=== PATIENT | female | born 1990 | race American Indian/Alaskan Native ===

== ENCOUNTER 2017-01-01 10:27 | Emergency (ER) | payer SELFPAY ==
--- NOTE | 2017-01-01 10:33 | Emergency Department Report ---
Chief Complaint: Fever Stated Complaint: FEVER Time Seen by Provider: 01/01/17 10:30 - HPI History of Present Illness: PT c/o fever since yesterday at 1800. PT also c/o kidney pain - ROS Review of Systems: + fever/ chills +nausea/+ vomiting - Exam Physical Exam: pt tearful in triage non toxic + back tenderness MSE screening note: Focused history and physical exam performed. Due to findings the following was ordered: labs ED Disposition for MSE Condition: Stable
[2017-01-01 10:35] VITALS: BP 122/87
[2017-01-01 10:59] LABS: Basophils % (Auto) 0.3 % (0.0-1.8); Eosinophils % (Auto) 0.8 % (0.0-4.3); Hematocrit 39.1 % (30.3-42.9); Hemoglobin 13.2 gm/dl (10.1-14.3); Mean Corpuscular HGB Conc 34 % (30-34); Mean Corpuscular Hemoglobin 33 pg (28-32); Mean Corpuscular Volume 99 fl (79-97); Platelet Count 191 K/mm3 (140-440); Red Blood Count 3.97 M/mm3 (3.65-5.03); Red Cell Distribution Width 13.7 % (13.2-15.2); White Blood Count 8.4 K/mm3 (4.5-11.0)
[2017-01-01 11:02] LABS: Bilirubin,Urine NEG (Negative); Blood,Urine SM (Negative); Ketones,Urine 80 mg/dL (Negative); Leukocyte Esterase,Urine MOD (Negative); Mucus,Urine 3+ /HPF; Nitrite,Urine NEG (Negative)
[2017-01-01 11:11] LABS: Anion Gap 22 mmol/L; BUN/Creatinine Ratio 11.66; Blood Urea Nitrogen 7 mg/dL (7-17); Calcium 9.1 mg/dL (8.4-10.2); Carbon Dioxide 19 mmol/L (22-30); Glucose 92 mg/dL (65-100); Potassium 3.5 mmol/L (3.6-5.0); Sodium 139 mmol/L (137-145)
[2017-01-01] MEDS ORDERED: NACL 0.9% 1000 ML 1,000 ML IV ONE ×2 (11:30→15:28)
[2017-01-01] MEDS ORDERED: TORADOL IV ONE (11:30)
[2017-01-01] MEDS ORDERED: ZOFRAN IV ONE ×2 (11:31→15:28)
--- NOTE | 2017-01-01 11:33 | Emergency Department Report ---
ED Back Pain/Injury HPI - General Chief Complaint: Fever Stated Complaint: FEVER Time Seen by Provider: 01/01/17 10:30 Source: patient Limitations: No Limitations - History of Present Illness Initial Comments: 26-year-old female no past medical history presents with complaint of one day of worsening lower back pain and right-sided flank pain with associated nausea and vomiting. Patient is awake alert and oriented 3 appears uncomfortable and states that the pain is 10 out of 10 in her lower back. States she has been vomiting persistently since this morning. MD Complaint: back pain - Related Data Allergies Allergy/AdvReac Type Severity Reaction Status Date / Time latex Allergy Rash Verified 01/01/17 12:16 ED Review of Systems ROS: Stated complaint: FEVER Other details as noted in HPI Constitutional: denies: chills, fever Eyes: denies: eye pain, eye discharge, vision change ENT: denies: ear pain, throat pain Respiratory: denies: cough, shortness of breath, wheezing Cardiovascular: denies: chest pain, palpitations Endocrine: no symptoms reported Gastrointestinal: abdominal pain, nausea. denies: diarrhea Genitourinary: denies: urgency, dysuria, discharge Musculoskeletal: denies: back pain, joint swelling, arthralgia Skin: denies: rash, lesions Neurological: denies: headache, weakness, paresthesias Psychiatric: denies: anxiety, depression Hematological/Lymphatic: denies: easy bleeding, easy bruising ED Past Medical Hx - Past Medical History Previous Medical History?: Yes Additional medical history: Vaginal dleivery x 1 - Surgical History Past Surgical History?: No - Social History Smoking Status: Never Smoker Substance Use Type: Non Opiate Pain ED Physical Exam - General Limitations: No Limitations General appearance: alert, in no apparent distress - Head Head exam: Present: atraumatic, normocephalic - Eye Eye exam: Present: normal appearance, PERRL, EOMI - ENT ENT exam: Present: mucous membranes moist - Neck Neck exam: Present: normal inspection - Respiratory Respiratory exam: Present: normal lung sounds bilaterally. Absent: respiratory distress - Cardiovascular Cardiovascular Exam: Present: regular rate, normal rhythm. Absent: systolic murmur, diastolic murmur, rubs, gallop - GI/Abdominal GI/Abdominal exam: Present: soft, normal bowel sounds - Extremities Exam Extremities exam: Present: normal inspection - Back Exam Back exam: Present: normal inspection, CVA tenderness (R), paraspinal tenderness (right sided flank pain) - Neurological Exam Neurological exam: Present: alert, oriented X3, CN II-XII intact, normal gait - Psychiatric Psychiatric exam: Present: normal affect, normal mood - Skin Skin exam: Present: warm, dry, intact, normal color. Absent: rash ED Course Vital Signs 01/01/17 10:31 Temperature 99.4 F Pulse Rate 95 H Respiratory 18 Rate Blood Pressure 122/87 O2 Sat by Pulse 100 Oximetry ED Medical Decision Making - Lab Data Result diagrams: 01/01/17 10:38 01/01/17 10:38 - Medical Decision Making A/P: Right flank pain, nausea and vomiting 1- 2- 3- 4- Critical care attestation.: If time is entered above; I have spent that time in minutes in the direct care of this critically ill patient, excluding procedure time. ED Disposition Condition: Stable Referrals: PRIMARY CARE, [Primary Care Provider] - 3-5 Days
[2017-01-01] MEDS ORDERED: MORPHINE ONE (12:19)
[2017-01-01] MEDS ORDERED: MORPHINE IV ONE ×2 (12:30→15:27)
[2017-01-01] MEDS ORDERED: ROCEPHIN/NS 1 GM/50 ML 1 GM/50 ML BAG IV ONE (17:59)
--- NOTE | 2017-01-02 07:52 | Cat Scan Report ---
CT OF THE ABDOMEN AND PELVIS WITHOUT CONTRAST HISTORY: Right flank pain. TECHNIQUE: Helical CT without contrast. Sagittal and coronal reformatted images. FINDINGS: No comparison. A horseshoe kidney is suspected. The renal pyramids are slightly hyperdense consistent with nephrocalcinosis. No focal renal or ureteral stone. No hydronephrosis. The course of the ureters is difficult to follow secondary to lack of intra-abdominal fat. No ureteral stones are suspected. The bladder is unremarkable. A 1.7 cm right ovarian cyst is suspected. The left ovary and uterus are unremarkable. Within the limits of a noncontrast exam, the remaining abdominal and pelvic viscera are within normal limits. The liver, biliary system, pancreas, spleen, and adrenal glands are unremarkable. The bowel loops are normal caliber and wall thickness. The appendix is not confidently identified. The aorta is normal caliber. No ascites, bulky adenopathy or inflammatory changes. The lung bases are clear. Normal heart size. No suspicious bony lesion. IMPRESSION: 1.7 cm right ovarian cyst. Horseshoe kidney. Evidence of nephrocalcinosis but no focal renal or ureteral stone.
== END 2017-01-01 11:33 | disposition home or self-care (01) ==
LOC: ED 10:27
DX: M54.5 Low back pain (principal); R11.2 Nausea with vomiting, unspecified; Z91.040 Latex allergy status
CPT/HCPCS: 36415; 74176; 80048; 81001; 82550; 84703; 85025; 96361; 96374; 96375; 96376; 99284; J0696; J1885; J2270; J2405; J7030